=== PATIENT | male | born 1985 | race Caucasian/White ===

== ENCOUNTER 2017-01-01 13:37 | Emergency (ER) | payer OTHER ==
[~2017-01-01] VITALS: Ht 180.3 cm; Wt 75.0 kg
[2017-01-01 13:51] VITALS: BP 110/67; PULSE 81; RESP 16; O2SAT 98
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
[2017-01-01] MEDS ORDERED: Lidocaine-Epi-Tetracaine Solution 3 mL Syringe TOPICAL ONE (14:40)
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
[2017-01-01] MEDS ORDERED: BACI28.4 TP (15:16)
[2017-01-01] MEDS ORDERED: HYDR-4003 PO (15:16)
[2017-01-01 16:09] VITALS: BP 117/63; PULSE 78; O2SAT 98
[2017-01-01 16:28] VITALS: BP 117/63; PULSE 78; RESP 16; O2SAT 98
== END 2017-01-01 16:29 | disposition home or self-care (01) ==
LOC: SED 13:37
DX: S62.612A Displaced fracture of proximal phalanx of right middle finger, initial encounter for closed fracture (principal); S63.282A Dislocation of proximal interphalangeal joint of right middle finger, initial encounter; S40.211A Abrasion of right shoulder, initial encounter; S50.311A Abrasion of right elbow, initial encounter; S70.211A Abrasion, right hip, initial encounter; V11.4XXA Pedal cycle driver injured in collision with other pedal cycle in traffic accident, initial encounter; Y93.55 Activity, bike riding; Y92.410 Unspecified street and highway as the place of occurrence of the external cause; Y99.8 Other external cause status